=== PATIENT | female | born 1940 | race Caucasian/White ===

== ENCOUNTER 2020-05-03 19:23 | Emergency (ER) | payer MEDICARE, BC ==
[~2020-05-03] VITALS: Ht 157.5 cm; Wt 97.5 kg
[2020-05-03] MEDS ORDERED: HYDRALAZINE HCL 20 MG/ML VIAL IV PRN ×2 (20:30→20:45)
[2020-05-03] MEDS ORDERED: HYDRALAZINE HCL 20 MG/ML VIAL ONE (20:32)
[2020-05-03] MEDS ORDERED: LABETALOL HCL 5 MG/ML 20ML VIAL IV STA (20:44)
[2020-05-03] MEDS ORDERED: LABETALOL HCL 20 ML ONE (20:53)
[2020-05-03 21:05] LABS: BASOPHILS # (AUTO) 0.1 (0.0-0.1); BASOPHILS % 1.2 % (0.0-1.0); EOSINOPHILS # (AUTO) 0.5 (0.0-0.4); EOSINOPHILS % 5.5 % (0.0-6.0); HEMATOCRIT 39.5 % (34.2-44.1); HEMOGLOBIN 12.3 g/dL (12.0-16.0); LYMPHOCYTES # (AUTO) 2.2 (1.0-3.2); LYMPHOCYTES % 22.9 % (18.0-39.1); MEAN CORPUSCULAR HEMOGLOBIN 30.4 pg (28-32); MEAN CORPUSCULAR HGB CONC 31.1 g/dL (31-35); MEAN CORPUSCULAR VOLUME 97.5 fL (81-99); MONOCYTES # (AUTO) 1.1 (0.2-0.8); MONOCYTES % 11.2 % (4.4-11.3); NEUTROPHILS # (AUTO) 5.5 (2.1-6.9); NEUTROPHILS % 57.5 % (38.7-80.0); PLATELET COUNT 277 x10e3/uL (140-360); RED BLOOD COUNT 4.05 x10e6/uL (3.6-5.1); RED CELL DISTRIBUTION WIDTH 14.4 % (11.7-14.4)
[2020-05-03] MEDS ORDERED: CARVEDILOL3.125 MG PO (21:23)
[2020-05-03] MEDS ORDERED: ROPINIROLE HCL1 MG PO (21:23)
[2020-05-03] MEDS ORDERED: SYMBICORT 16010.2 GM (21:23)
[2020-05-03] MEDS ORDERED: GABAPENTIN400 MG PO (21:23)
[2020-05-03] MEDS ORDERED: LANTUS 3ML100 UNITS/ (21:23)
[2020-05-03] MEDS ORDERED: CLOPIDOGREL75 MG PO (21:23)
[2020-05-03] MEDS ORDERED: SINGULAIR10 MG PO (21:23)
[2020-05-03] MEDS ORDERED: NEXIUM40 MG PO (21:23)
[2020-05-03] MEDS ORDERED: SPIRONOLACTONE25 MG PO (21:23)
[2020-05-03] MEDS ORDERED: FUROSEMIDE20 MG (21:23)
[2020-05-03] MEDS ORDERED: LOSARTAN POTAS100 MG PO (21:23)
[2020-05-03] MEDS ORDERED: ISOSORBIDE MONO30 MG PO (21:23)
[2020-05-03] MEDS ORDERED: ASPIRIN81 MG (21:23)
== END 2020-05-03 21:50 | disposition other institution (70) ==
LOC: FSED 19:40
DX: I61.9 Nontraumatic intracerebral hemorrhage, unspecified (principal); I16.9 Hypertensive crisis, unspecified; I10 Essential (primary) hypertension; E11.65 Type 2 diabetes mellitus with hyperglycemia; R94.31 Abnormal electrocardiogram [ECG] [EKG]
CPT/HCPCS: 36415; 70450; 82948; 85025; 93005; 99284; J0360; J3490